=== PATIENT | female | born 1995 | race Caucasian/White ===

== ENCOUNTER 2017-02-12 16:52 | Emergency (ER) | payer SELFPAY ==
[2017-02-12 17:15] VITALS: BP 122/75
--- NOTE | 2017-02-12 17:50 | UC ---
Complaint Female HPI - HPI Summary HPI Summary: TWO WEEKS OF URINARY FREQUENCY, URGENCY AND DISCOMFORT WELL LOW BACK PAIN. TODAY DEVELOPED LOW GRADE FEVER - History Of Current Complaint Chief Complaint: [facility]CGU Stated Complaint: URINARY Time Seen by Provider: 02/12/17 17:18 Hx Obtained From: Patient Hx Last Menstrual Period: 02/10/07 Onset/Duration: Gradual Onset, Lasting Weeks, Still Present Timing: Lasting Weeks Severity Initially: Mild Severity Currently: Moderate Pain Intensity: 7 Pain Scale Used: 0-10 Numeric Character: Dull, Burning Aggravating Factor(s): Coughing Associated Signs And Symptoms: Positive: Fever, Back Pain. Negative: Vaginal Bleeding/Discharge, Vaginal Discharge, Nausea, Vomiting(# Of Episodes =) - Risk Factors Ectopic Risk Factor: Negative - Allergies/Home Medications Allergies/Adverse Reactions: Allergies Allergy/AdvReac Type Severity Reaction Status Date / Time Sulfa Antibiotics Allergy Intermediate Rash Verified 02/12/17 17:14 PMH/Surg Hx/FS Hx/Imm Hx Previously Healthy: Yes Endocrine History Of: Denies: Diabetes, Thyroid Disease, Hyperthyroidism, Hypothyroidism, Dyslipidemia Cardiovascular History Of: Denies: Cardiac Disorders, Hypertension, Pacemaker/ICD, Myocardial Infarction , Congestive Heart Failure, Atrial Fibrillation, Deep Vein Thrombosis, Bleeding Disorders Respiratory History Of: Denies: COPD, Asthma, Bronchitis, Pneumonia, Pulmonary Embolism GI/ History Of: Denies: Gastroesophageal Reflux, Ulcer, Gastrointestinal Bleed, Gall Bladder Disease, Kidney Stones, Diverticulitis, Renal Disease, Urosepsis Neurological History Of: Denies: TIA, CVA, Dementia, Seizures, Migraine Psychological History Of: Denies: Anxiety, Depression, Bipolar Disorder, Schizophrenia, Post Traumatic Stress Disorder Cancer History Of: Denies: Lung Cancer, Colorectal Cancer, Breast Cancer, Prostate Cancer, Cervical Cancer Other History Of: Negative For: HIV, Hepatitis B, Hepatitis C, Anticoagulant Therapy - Surgical History Surgical History: None - Family History Known Family History: Positive: Cardiac Disease, Hypertension - Social History Occupation: Student Lives: With Family Alcohol Use: Occasionally Substance Use Type: None Smoking Status (MU): Never Smoked Tobacco - Immunization History Most Recent Influenza Vaccination: JUL 2015 Review of Systems Constitutional: Fever - MILD DEVELOPED TODAY Skin: Negative Eyes: Negative ENT: Negative Respiratory: Negative Cardiovascular: Negative Gastrointestinal: Negative Genitourinary: Dysuria, Frequency, Urgency Motor: Negative Neurovascular: Negative Musculoskeletal: Negative Neurological: Negative Psychological: Negative All Other Systems Reviewed And Are Negative: Yes Physical Exam Triage Information Reviewed: Yes Appearance: Well-Appearing, No Pain Distress, Well-Nourished Vital Signs: Initial Vital Signs Temp 100.2 F 02/12/17 17:10 Pulse 102 02/12/17 17:10 Resp 16 02/12/17 17:10 BP 122/75 02/12/17 17:10 Pulse Ox 100 02/12/17 17:10 Vital Signs Reviewed: Yes Eye Exam: Normal ENT Exam: Normal ENT: Positive: Normal ENT inspection, Hearing grossly normal, Pharynx normal, TMs normal Dental Exam: Normal Neck exam: Normal Neck: Positive: Supple, Nontender Respiratory Exam: Normal Respiratory: Positive: Chest non-tender, Lungs clear, Normal breath sounds, No respiratory distress Cardiovascular Exam: Normal Cardiovascular: Positive: RRR, No Murmur, Pulses Normal Abdominal Exam: Normal Abdomen Description: Positive: Nontender, No Organomegaly, Soft Musculoskeletal Exam: Normal Neurological Exam: Normal Psychological Exam: Normal Skin Exam: Normal Complaint Female Dx - Differential Dx/Diagnosis Differential Diagnosis/HQI/PQRI: Urinary Tract Infection Provider Diagnoses: URINARY TRACT INFECTION Discharge - Discharge Plan Condition: Stable Disposition: HOME Prescriptions: Ciprofloxacin TAB* [Cipro 500 MG TAB*] 500 mg PO BID #10 tab Phenazopyridine TAB* [Pyridium 100 mg TAB*] 100 mg PO TID PRN #15 tab PRN Reason: Pain Patient Education Materials: Urinary Tract Infection in Women (ED) Forms: *School Release Referrals: [facility] [place] [facility] [Outside] Non Staff,Doctor [Primary Care Provider] -
== END 2017-02-12 17:43 | disposition home or self-care (01) ==
LOC: UCCORT 16:52
DX: N39.0 Urinary tract infection, site not specified (principal); Z32.02 Encounter for pregnancy test, result negative; Z88.2 Allergy status to sulfonamides
CPT/HCPCS: 81003; 84702; 87086; 99212; G0463

== ENCOUNTER 2017-09-10 11:34 | Emergency (ER) | payer BC ==
[2017-09-10 11:46] VITALS: BP 115/76
--- NOTE | 2017-09-10 14:04 | UC ---
Throat Pain/Nasal Manny HPI - HPI Summary HPI Summary: 3AM BEGAN TO HAVE WORSENING SWEATS, CHILLS SORE THROAT AND SWOLLEN TONSILS. 5X EMESIS. POSSIBLE FEVER. NO RASH. NO ABDOMINAL PAIN. - History of Current Complaint Chief Complaint: UCGeneralIllness Stated Complaint: FEVER,VOMITING,ACHES Time Seen by Provider: 09/10/17 13:18 Hx Obtained From: Patient Hx Last Menstrual Period: 09/10/17 Onset/Duration: Gradual Onset, Lasting Hours Severity: Moderate Cough: None Associated Signs & Symptoms: Positive: Hoarseness, Fever - Epiglottits Risk Factors Epiglottis Risk Factors: Negative - Allergies/Home Medications Allergies/Adverse Reactions: Allergies Allergy/AdvReac Type Severity Reaction Status Date / Time Sulfa Antibiotics Allergy Intermediate Rash Verified 09/10/17 11:38 PMH/Surg Hx/FS Hx/Imm Hx Previously Healthy: Yes Other History Of: Negative For: HIV, Hepatitis B, Hepatitis C, Anticoagulant Therapy - Surgical History Surgical History: None - Family History Known Family History: Positive: Cardiac Disease, Hypertension - Social History Occupation: Student Lives: Dormitory/Roommates Alcohol Use: Occasionally Substance Use Type: None Smoking Status (MU): Never Smoked Tobacco - Immunization History Most Recent Influenza Vaccination: 2017 Review of Systems Constitutional: Fever, Chills, Fatigue Skin: Negative ENT: Sore Throat Respiratory: Negative Cardiovascular: Negative Gastrointestinal: Vomiting, Nausea Genitourinary: Negative Motor: Negative Neurovascular: Negative Musculoskeletal: Negative Neurological: Negative Psychological: Negative Is Patient Immunocompromised?: No All Other Systems Reviewed And Are Negative: Yes Physical Exam Triage Information Reviewed: Yes Appearance: Ill-Appearing Vital Signs: Initial Vital Signs Temp 98.3 F 09/10/17 11:39 Pulse 107 09/10/17 11:39 Resp 16 09/10/17 11:39 BP 115/76 09/10/17 11:39 Pulse Ox 99 09/10/17 11:39 Vital Signs Reviewed: Yes Eye Exam: Normal ENT: Positive: Hearing grossly normal, Pharyngeal erythema, Tonsillar swelling Dental Exam: Normal Neck exam: Normal Neck: Positive: Supple, Nontender, No Lymphadenopathy Respiratory Exam: Normal Respiratory: Positive: Chest non-tender, Lungs clear, Normal breath sounds, No respiratory distress, No accessory muscle use Cardiovascular Exam: Normal Cardiovascular: Positive: RRR, No Murmur, Pulses Normal Abdominal Exam: Normal Abdomen Description: Positive: Nontender, No Organomegaly, Soft Musculoskeletal Exam: Normal Musculoskeletal: Positive: Strength Intact, ROM Intact, No Edema Neurological Exam: Normal Neurological: Positive: Alert, Muscle Tone Normal Psychological Exam: Normal Skin Exam: Normal Throat Pain/Nasal Course/Dx - Differential Dx/Diagnosis Differential Diagnosis/HQI/PQRI: Influenza, Pharyngitis, Tonsillitis, URI Provider Diagnoses: TONSILITIS Discharge - Discharge Plan Condition: Stable Disposition: HOME Prescriptions: Clindamycin Cap(NF) [Clindamycin Cap 300 mg Cap(NF)] 300 mg PO TID #21 cap Ondansetron ODT TAB* [Zofran 4 MG Odt TAB*] 4 mg PO Q8H PRN #9 tab.odt PRN Reason: Vomiting Patient Education Materials: Acute Nausea and Vomiting (ED), Tonsillitis (ED) [place] [facility] [place]Outside] Non Staff,Doctor [Primary Care Provider] -
== END 2017-09-10 14:06 | disposition home or self-care (01) ==
LOC: UCCORT 11:34
DX: J03.90 Acute tonsillitis, unspecified (principal); Z32.02 Encounter for pregnancy test, result negative; Z88.2 Allergy status to sulfonamides
CPT/HCPCS: 81003; 84702; 87502; 99212; G0463